=== PATIENT | male | born 1940 | race Caucasian/White ===

== ENCOUNTER 2021-06-05 05:51 | Emergency (ER) | payer MEDICARE, BC ==
[~2021-06-05] VITALS: Ht 175.3 cm; Wt 78.7 kg
--- NOTE | 2021-06-05 05:55 | NUR ---
Patient BIB [facility] from home for c/o left flank pain. Patient states 4 days ago he tripped on the 2nd step and fell on his back. He states that he was seen at [facility] ER and had x rays done which were negative. Came in for worsening pain.
--- NOTE | 2021-06-05 06:00 | NUR ---
Dr. Aldana on bedside for MSE.
[2021-06-05 06:14] LABS: HEMATOCRIT 39.5 % (36.7-47.1); MEAN CORPUSCULAR HEMOGLOBIN 29.8 uug (23.8-33.4); MEAN CORPUSCULAR VOLUME 87.2 fL (73.0-96.2); PLATELET COUNT (AUTO) 247 K/uL (152-348)
[2021-06-05] MEDS ORDERED: IV NORMAL SALINE 1000 ML BAG IV ONE (06:15)
[2021-06-05] MEDS ORDERED: ONDANSETRON 4 MG/2 ML VIAL IV ONE ×2 (06:15→07:30)
[2021-06-05 06:20] LABS: CREATININE 1.3 mg/dL (0.6-1.3); POTASSIUM 4.4 mmol/L (3.5-5.1)
[2021-06-05] MEDS ORDERED: PROP10TA68 PO (06:21)
[2021-06-05] MEDS ORDERED: SILD100T PO (06:21)
[2021-06-05] MEDS ORDERED: ATOR40TA PO (06:21)
[2021-06-05] MEDS ORDERED: PREG50CA PO (06:21)
[2021-06-05 06:26] LABS: BILIRUBIN,DIRECT 0.1 mg/dL (0.0-0.2); BILIRUBIN,TOTAL 0.5 mg/dL (0.2-1.0); TOTAL PROTEIN, SERUM 6.6 g/dL (6.4-8.2)
[2021-06-05] MEDS ORDERED: ONDANSETRON 4 MG/2 ML VIAL ONE ×2 (06:30→07:40)
[2021-06-05] MEDS ORDERED: IOHEXOL 300MG/ML 100 ML INFUS..BTL ONE (06:39)
[2021-06-05] MEDS ORDERED: SWABABLE VALVE TRANSFER SET EA MC ONE (06:39)
[2021-06-05] MEDS ORDERED: IV NORMAL SALINE 250 ML IV ONE (06:39)
--- NOTE | 2021-06-05 07:04 | NUR ---
Report given to day shift ROSAURA Houser.
--- NOTE | 2021-06-05 07:05 | NUR ---
Patient back from CT.
[2021-06-05] MEDS ORDERED: MORPHINE SULFATE 2 MG/1 ML DISP.SYRIN IV ONE (07:30)
[2021-06-05] MEDS ORDERED: MORPHINE SULFATE 2 MG/1 ML DISP.SYRIN ONE (07:40)
[2021-06-05 08:01] LABS: *BILIRUBIN,URIN NEGATIVE (NEGATIVE); *BLOOD, URINE NEGATIVE (NEGATIVE); *CLARITY,URINE CLEAR (CLEAR); *COLOR,URINE YELLOW (YELLOW); *KETONES,URINE NEGATIVE (NEGATIVE); *UROBILINOGEN,URINE 0.2 E.U./dl (NORMAL); LEUKOCYTE ESTERASE ,URINE NEGATIVE (NEGATIVE); NITRITE, URINE NEGATIVE (NEGATIVE); UGLUCOSE NEGATIVE (NEGATIVE)
--- NOTE | 2021-06-05 08:04 | NUR ---
urine collected from patient and sent to lab
[2021-06-05] MEDS ORDERED: HYDR-4275 PO (09:12)
--- NOTE | 2021-06-05 09:41 | NUR ---
Patient discharged to home in stable condition. Instructed to follow up with primary care physician. CD given of radiology reports, patient wheeled with wheelchair and taken home in private car driven by . Written and verbal after care instructions given. Patient verbalizes understanding of instructions. Stressed follow up or return to ER for worsening s/s.
[2021-06-05 09:45] VITALS: BP 120/71
== END 2021-06-05 09:46 | disposition home or self-care (01) ==
LOC: ER 05:59
DX: R10.9 Unspecified abdominal pain (principal); M54.9 Dorsalgia, unspecified; E78.5 Hyperlipidemia, unspecified; M19.90 Unspecified osteoarthritis, unspecified site; I10 Essential (primary) hypertension
CPT/HCPCS: 36415; 71260; 74177; 80048; 80076; 81003; 83690; 84484; 85025; 85730; 93005; 96374; 96375; 96376; 99285; J2270; J2405 ×2; Q9967; 70030-TC; A4663; J7030; J7050

== ENCOUNTER 2021-06-11 15:23 | Emergency (ER) | payer MEDICARE, BC ==
[~2021-06-11] VITALS: Ht 177.8 cm; Wt 76.7 kg
[~2021-06-11 15:23] MED LIST: ATOR40TA PO; HYDR-4275 PO; PREG50CA PO; PROP10TA68 PO; SILD100T PO
[2021-06-11] MEDS ORDERED: HYDROMORPHONE 1 MG/1 ML DISP.SYRIN IV ONE (15:45)
[2021-06-11] MEDS ORDERED: IV NORMAL SALINE 1000 ML BAG IV ONE (15:45)
[2021-06-11] MEDS ORDERED: IOHEXOL 300MG/ML 100 ML INFUS..BTL ONE (16:01)
[2021-06-11] MEDS ORDERED: SWABABLE VALVE TRANSFER SET EA MC ONE (16:01)
[2021-06-11] MEDS ORDERED: IV NORMAL SALINE 250 ML IV ONE (16:01)
[2021-06-11] MEDS ORDERED: ONDANSETRON 4 MG/2 ML VIAL IV ONE (16:15)
[2021-06-11] MEDS ORDERED: ONDANSETRON 4 MG/2 ML VIAL ONE (16:15)
[2021-06-11] MEDS ORDERED: MORPHINE SULFATE 4 MG/1 ML DISP.SYRIN IV ONE (16:15)
[2021-06-11] MEDS ORDERED: MORPHINE SULFATE 2 MG/1 ML DISP.SYRIN ONE (16:16)
[2021-06-11 16:19] LABS: HEMATOCRIT 41.9 % (36.7-47.1); MEAN CORPUSCULAR HEMOGLOBIN 29.3 uug (23.8-33.4); MEAN CORPUSCULAR VOLUME 86.6 fL (73.0-96.2); PLATELET COUNT (AUTO) 293 K/uL (152-348)
[2021-06-11 16:32] LABS: BILIRUBIN,DIRECT 0.1 mg/dL (0.0-0.2); BILIRUBIN,TOTAL 0.6 mg/dL (0.2-1.0); CREATININE 1.2 mg/dL (0.6-1.3); POTASSIUM 4.1 mmol/L (3.5-5.1); TOTAL PROTEIN, SERUM 7.2 g/dL (6.4-8.2)
--- NOTE | 2021-06-11 18:00 | NUR ---
Removed IV intact, site okay, bandaged. Gave pt d/c instructions, pt verbalized understanding.
== END 2021-06-11 18:40 | disposition home or self-care (01) ==
LOC: ER 15:23
DX: R10.33 Periumbilical pain (principal); K59.00 Constipation, unspecified; N40.0 Benign prostatic hyperplasia without lower urinary tract symptoms; Z90.49 Acquired absence of other specified parts of digestive tract; Z96.641 Presence of right artificial hip joint; E78.5 Hyperlipidemia, unspecified; Z85.820 Personal history of malignant melanoma of skin; Z88.2 Allergy status to sulfonamides; G25.0 Essential tremor; Z88.8 Allergy status to other drugs, medicaments and biological substances; Z91.048 Other nonmedicinal substance allergy status
CPT/HCPCS: 74177; 80048; 80076; 83605; 83690; 84484; 85025; 85730; 87040 ×2; 93005; 96361; 96374; 96375; 99285; J2270; J2405; Q9967; 36415; 70030-TC; A4663; J7030; J7050

== ENCOUNTER 2021-06-14 05:15 | Emergency (ER) | payer MEDICARE, BC ==
[~2021-06-14] VITALS: Ht 177.8 cm; Wt 77.1 kg
[~2021-06-14 05:15] MED LIST changes: -HYDR-4275 PO; -PREG50CA PO; -SILD100T PO
[2021-06-14] MEDS ORDERED: PROCHLORPERAZINE EDISYLATE 10 MG/2 ML VIAL IV ONE (06:00)
[2021-06-14] MEDS ORDERED: MORPHINE SULFATE 2 MG/1 ML DISP.SYRIN IV ONE ×2 (06:00→08:30)
[2021-06-14] MEDS ORDERED: IV NORMAL SALINE 1000 ML BAG IV ONE (06:00)
[2021-06-14] MEDS ORDERED: IV NORMAL SALINE 250 ML IV ONE (06:03)
[2021-06-14] MEDS ORDERED: SWABABLE VALVE TRANSFER SET EA MC ONE (06:03)
[2021-06-14] MEDS ORDERED: IOHEXOL 300MG/ML 100 ML INFUS..BTL ONE (06:03)
[2021-06-14 06:25] LABS: HEMATOCRIT 39.5 % (36.7-47.1); MEAN CORPUSCULAR HEMOGLOBIN 29.9 uug (23.8-33.4); MEAN CORPUSCULAR VOLUME 87.4 fL (73.0-96.2); PLATELET COUNT (AUTO) 264 K/uL (152-348)
[2021-06-14] MEDS ORDERED: PROCHLORPERAZINE EDISYLATE 10 MG/2 ML VIAL ONE (06:26)
[2021-06-14] MEDS ORDERED: MORPHINE SULFATE 2 MG/1 ML DISP.SYRIN ONE ×2 (06:26→08:37)
--- NOTE | 2021-06-14 06:36 | NUR ---
Brought to ED with spouse in WC. Complaint abdominal pain x several days, seen here 06/12 constipation.At home taking stool softner, has fluid brown stools with moderate pain x minutes with BM. #20 RFA IVF, medications as directed. Last intake 06/13 2000 small amount spagitti . Evarts intact membranes. EKG SR with 1 degree block to MD.To CT via jason.
[2021-06-14 06:50] LABS: CREATININE 1.2 mg/dL (0.6-1.3); POTASSIUM 3.8 mmol/L (3.5-5.1)
[2021-06-14 06:56] LABS: BILIRUBIN,DIRECT 0.1 mg/dL (0.0-0.2); BILIRUBIN,TOTAL 0.4 mg/dL (0.2-1.0)
--- NOTE | 2021-06-14 07:45 | NUR ---
Received report from kiln charger. Pt has been worked up since approx 0430. Pt gotten up and road tested to bathroom. Steady gait but does state feeling a little weak. Pt denies pain, nausea, sob, dizziness or discomfort. Pt has good color, temp and appearance, VSS, PE WNL, lungs clear, RRR without g/m/r/e. No s/sx of distress present
[2021-06-14] MEDS ORDERED: ONDANSETRON 4 MG/2 ML VIAL ONE (08:40)
[2021-06-14] MEDS ORDERED: ONDANSETRON 4 MG/2 ML VIAL IV ONE (08:45)
--- NOTE | 2021-06-14 08:45 | NUR ---
Pt complaining of 9/10 abd pain, pt bent over and writhing in pain. EDMD ordered 2mg /1ml MS plus zofran 4mg per pt request. Meds administered IVP without difficulty. pt states feeling relief, pain at 5/10 now. Pt states feeling mildly nausead that passed, otherwise pt tolerated well.
--- NOTE | 2021-06-14 08:55 | NUR ---
18 fr NG tube measured properly, lubed up copiously and inserted without difficulty into Lt nostrile. Inserted with one fluid motion, tube entered very easily with very little resistance to approx 60cm. at nares. Placement confirmed with steth. connected to low intermittent suction with immediate return of approx 40cc gastric juices and residual. Pt tolerated well, with little pain and discomfort.
--- NOTE | 2021-06-14 09:32 | NUR ---
PCXR being taken currently for NG placement confirmation. Pt swabbed for rapid covid test and sample sent to lab.
--- NOTE | 2021-06-14 09:40 | NUR ---
EDMD at pt bedside to discuss dispo with pt and pt's . Pt will not be admitted but will be DCed home with referrals to GI and some tips on management of symptoms.
--- NOTE | 2021-06-14 09:52 | NUR ---
PO trial started using 4oz H2O per EDMD.
[2021-06-14] MEDS ORDERED: METO-295 PO (09:56)
[2021-06-14] MEDS ORDERED: SENN-175 PO (09:57)
--- NOTE | 2021-06-14 10:10 | NUR ---
Pt and pt's given DC instructions by [facility] personally. EDMT discussed dispo and options with pt add length and given prescribtion medication info. Pt and confirmed understanding of [facility] DC instructions. Pt has no further questions at this time. Pt told that the his pharmacist can answer any additional questions they may have regarding prescribtions. Pt has good color, temp and appearance, VSS, PE wnl, lungs clear, NSR without ectopy. RRR without m/g/r. IV angio removed from Rt forearm and NG removed from rt. nostrile without difficulty. Pt oxygenating and perfusing well. No complaints of pain, nausea or discomfort. No s/sx of distress present.
[2021-06-14 10:31] VITALS: BP 133/93
--- NOTE | 2021-06-14 10:31 | NUR ---
Rapid covid test canceled
== END 2021-06-14 10:10 | disposition home or self-care (01) ==
LOC: ER 05:19
DX: R10.9 Unspecified abdominal pain (principal); Z90.49 Acquired absence of other specified parts of digestive tract; Z85.820 Personal history of malignant melanoma of skin; E78.5 Hyperlipidemia, unspecified; G25.0 Essential tremor; Z96.641 Presence of right artificial hip joint; M19.90 Unspecified osteoarthritis, unspecified site; Z88.5 Allergy status to narcotic agent; Z88.2 Allergy status to sulfonamides; K44.9 Diaphragmatic hernia without obstruction or gangrene; R11.0 Nausea; R94.31 Abnormal electrocardiogram [ECG] [EKG]
CPT/HCPCS: 36415; 71045; 74018; 74177; 80048; 80076; 83605; 83690; 84484; 85025; 93005; 96361; 96374; 96375; 96376; 99285; J0780; J2270 ×2; J2405; Q9967; 70030-TC; A4663; J7050

== ENCOUNTER 2022-03-25 18:33 | Emergency (ER) | payer MEDICARE, BC ==
[~2022-03-25] VITALS: Ht 177.8 cm; Wt 68.0 kg
[~2022-03-25 18:33] MED LIST changes: +METO-295 PO; +SENN-175 PO
--- NOTE | 2022-03-25 19:36 | NUR ---
Dr. Olmos on bedside for MSE.
[2022-03-25] MEDS ORDERED: IV NORMAL SALINE 1000 ML BAG IV ONE (20:00)
[2022-03-25 20:08] LABS: HEMATOCRIT 40.1 % (36.7-47.1); MEAN CORPUSCULAR HEMOGLOBIN 29.5 uug (23.8-33.4); MEAN CORPUSCULAR VOLUME 87.2 fL (73.0-96.2); PLATELET COUNT (AUTO) 260 K/uL (152-348)
[2022-03-25 20:10] LABS: NEUTROPHILS % (MANUAL) 0 % (42-75)
[2022-03-25 20:18] LABS: CARBON DIOXIDE 29 mmol/L (21-32); CHLORIDE 104 mmol/L (98-107); CREATININE 1.2 mg/dL (0.6-1.3); GLUCOSE 110 mg/dL (74-106); POTASSIUM 3.8 mmol/L (3.5-5.1); UREA NITROGEN, BLOOD 22 mg/dL (7-18)
[2022-03-25 20:26] LABS: ALANINE AMINOTRANSFERASE 27 U/L (16-63); ALKALINE PHOSPHATASE 76 U/L (50-136); ASPARTATE AMINOTRANSFERASE 18 U/L (15-37); BILIRUBIN,DIRECT 0.1 mg/dL (0.0-0.2); BILIRUBIN,TOTAL 0.6 mg/dL (0.2-1.0); TOTAL PROTEIN, SERUM 6.9 g/dL (6.4-8.2)
[2022-03-25] MEDS ORDERED: IOHEXOL 300MG/ML 50 ML VIAL ONE (20:35)
[2022-03-25] MEDS ORDERED: IV NORMAL SALINE 250 ML IV ONE (20:36)
[2022-03-25] MEDS ORDERED: SILD100T PO (20:37)
[2022-03-25] MEDS ORDERED: VICODIN PO (20:37)
[2022-03-25] MEDS ORDERED: [UNRECOGNIZED DRUG - OTHER] PO (20:37)
[2022-03-25] MEDS ORDERED: PREG50CA PO (20:37)
[2022-03-25] MEDS ORDERED: CHOL500062 PO (20:37)
[2022-03-25] MEDS ORDERED: MELA5TAB PO (20:37)
[2022-03-25] MEDS ORDERED: SWABABLE VALVE TRANSFER SET EA MC ONE (20:40)
--- NOTE | 2022-03-25 21:14 | NUR ---
Back from CT.
[2022-03-25] MEDS ORDERED: LIDOCAINE 2% (GLYDO= UROJET) 10 ML JELLY MM ONE ×2 (22:14→22:30)
[2022-03-25 23:13] LABS: *BILIRUBIN,URIN NEGATIVE (NEGATIVE); *BLOOD, URINE TRACE (NEGATIVE); *CLARITY,URINE CLEAR (CLEAR); *COLOR,URINE YELLOW (YELLOW); PH,URINE 5.5 (5.0-8.0); UGLUCOSE NEGATIVE (NEGATIVE)
[2022-03-25 23:14] LABS: *KETONES,URINE NEGATIVE (NEGATIVE); *UROBILINOGEN,URINE 0.2 E.U./dl (NORMAL); LEUKOCYTE ESTERASE ,URINE NEGATIVE (NEGATIVE); NITRITE, URINE NEGATIVE (NEGATIVE)
[2022-03-25 23:19] LABS: BACTERIA,URINE NONE SEEN /HPF (NONE SEEN); SQUAMOUS EPITHELIAL CELL,UR FEW /HPF (NONE SEEN); WBC,URINE 0-3 /HPF (0-3)
--- NOTE | 2022-03-25 23:30 | NUR ---
Dr. Olmos on bedside.
[2022-03-25] MEDS ORDERED: OXYC-128 PO (23:44)
--- NOTE | 2022-03-26 00:14 | NUR ---
Patient discharged to home in stable condition. Written and verbal after care instructions given. Patient verbalizes understanding of instructions. Stressed follow up or return to ER for worsening s/s. Patient ambulated fr the ER with steady gait. All belongings with patient.
[2022-03-26 00:20] VITALS: BP 128/89
== END 2022-03-26 00:15 | disposition home or self-care (01) ==
LOC: ER 18:33
DX: R10.33 Periumbilical pain (principal); R33.9 Retention of urine, unspecified; K52.9 Noninfective gastroenteritis and colitis, unspecified; R94.31 Abnormal electrocardiogram [ECG] [EKG]; Z96.641 Presence of right artificial hip joint; Z90.49 Acquired absence of other specified parts of digestive tract; Z85.820 Personal history of malignant melanoma of skin
CPT/HCPCS: 99285; 74177; 96360; 96361; 80076; 80048; 81001; 85025; 84484; 36415; 93005; 51702; 83605; 85007; Q9967; J7040; 70030-TC; A4663

== ENCOUNTER 2022-06-18 06:39 | Emergency (ER) | payer MEDICARE, BC ==
[~2022-06-18] VITALS: Ht 177.8 cm; Wt 68.0 kg
[~2022-06-18 06:39] MED LIST changes: +CHOL500062 PO; +MELA5TAB PO; -METO-295 PO; +OXYC-128 PO; +PREG50CA PO; -PROP10TA68 PO; -SENN-175 PO; +SILD100T PO; +VICODIN PO; +[UNRECOGNIZED DRUG - OTHER] PO
--- NOTE | 2022-06-18 07:04 | NUR ---
Pt. walked into ER. with steady gait, NAD noted
[2022-06-18] MEDS ORDERED: AZIT250T13 PO (07:23)
--- NOTE | 2022-06-18 07:35 | NUR ---
Patient discharged to home in stable condition. Written and verbal after care instructions given. Patient verbalizes understanding of instructions. Stressed follow up or return to ER for worsening s/s.
[2022-06-18 07:37] VITALS: BP 146/89
== END 2022-06-18 07:35 | disposition home or self-care (01) ==
LOC: ER 06:45
DX: R05.9 Cough, unspecified (principal); Z96.641 Presence of right artificial hip joint; Z90.49 Acquired absence of other specified parts of digestive tract; G25.0 Essential tremor; E78.5 Hyperlipidemia, unspecified; M19.90 Unspecified osteoarthritis, unspecified site
CPT/HCPCS: 71045; A4663

== ENCOUNTER 2022-07-11 00:40 | Emergency (ER) | payer MEDICARE, BC ==
[~2022-07-11] VITALS: Ht 177.8 cm; Wt 68.0 kg
[~2022-07-11 00:40] MED LIST changes: +AZIT250T13 PO
--- NOTE | 2022-07-11 01:45 | NUR ---
Dr. Love at bedside for MSE.
[2022-07-11] MEDS ORDERED: KETOROLAC TROMETHAMINE 15 MG INJ IVP ONE (02:00)
[2022-07-11] MEDS ORDERED: IV NORMAL SALINE 1000 ML BAG IV ONE (02:00)
[2022-07-11] MEDS ORDERED: ONDANSETRON 4 MG/2 ML VIAL IV ONE (02:00)
--- NOTE | 2022-07-11 02:05 | NUR ---
Pt out of ER for CT.
[2022-07-11] MEDS ORDERED: KETOROLAC TROMETHAMINE 15 MG INJ ONE (02:13)
[2022-07-11] MEDS ORDERED: ONDANSETRON 4 MG/2 ML VIAL ONE (02:13)
--- NOTE | 2022-07-11 02:20 | NUR ---
Pt back to ER from CT.
[2022-07-11 02:21] LABS: *BILIRUBIN,URIN NEGATIVE (NEGATIVE); *BLOOD, URINE NEGATIVE (NEGATIVE); *CLARITY,URINE CLEAR (CLEAR); *COLOR,URINE YELLOW (YELLOW); *KETONES,URINE NEGATIVE (NEGATIVE); *UROBILINOGEN,URINE 0.2 E.U./dl (NORMAL); LEUKOCYTE ESTERASE ,URINE NEGATIVE (NEGATIVE); NITRITE, URINE NEGATIVE (NEGATIVE); PH,URINE 5.5 (5.0-8.0); UGLUCOSE NEGATIVE (NEGATIVE)
[2022-07-11 02:31] LABS: HEMATOCRIT 41.2 % (36.7-47.1); MEAN CORPUSCULAR HEMOGLOBIN 30.2 uug (23.8-33.4); MEAN CORPUSCULAR VOLUME 87.3 fL (73.0-96.2); PLATELET COUNT (AUTO) 207 K/uL (152-348)
[2022-07-11 03:21] LABS: CARBON DIOXIDE 28 mmol/L (21-32); CHLORIDE 103 mmol/L (98-107); CREATININE 1.4 mg/dL (0.6-1.3); GLUCOSE 129 mg/dL (74-106); LIPASE 58 U/L (73-393); POTASSIUM 4.4 mmol/L (3.5-5.1); UREA NITROGEN, BLOOD 30 mg/dL (7-18)
[2022-07-11 03:26] LABS: ALANINE AMINOTRANSFERASE 39 U/L (16-63); ALKALINE PHOSPHATASE 77 U/L (50-136); ASPARTATE AMINOTRANSFERASE 22 U/L (15-37); BILIRUBIN,TOTAL 0.5 mg/dL (0.2-1.0)
[2022-07-11 03:41] LABS: TOTAL PROTEIN, SERUM 7.1 g/dL (6.4-8.2)
[2022-07-11] MEDS ORDERED: METRONIDAZOLE 500 MG/NS 100 ML PIGGYBACK IV ONE (03:45)
[2022-07-11] MEDS ORDERED: IV NORMAL SALINE 500 ML BAG IV ONE (03:45)
[2022-07-11] MEDS ORDERED: CEFTRIAXONE 1 G in IV DEXTROSE 5% 50 ML IV ONE (03:45)
[2022-07-11] MEDS ORDERED: IV NORMAL SALINE 250 ML IV ONE (03:49)
[2022-07-11] MEDS ORDERED: CEFTRIAXONE /D5W 50ML IVPB **ER PYXIS IV ONE (03:49)
[2022-07-11] MEDS ORDERED: SWABABLE VALVE TRANSFER SET EA MC ONE (03:49)
[2022-07-11] MEDS ORDERED: IOHEXOL 350 100 ML INFUS..BTL ONE (03:50)
[2022-07-11] MEDS ORDERED: INDO-12 PO (03:51)
--- NOTE | 2022-07-11 03:53 | NUR ---
Pt out of ER for CT.
[2022-07-11] MEDS ORDERED: ACETAMINOPHEN 325 MG TABLET ONE (04:48)
[2022-07-11] MEDS ORDERED: ACETAMINOPHEN 325 MG TABLET PO ONE (05:00)
[2022-07-11] MEDS ORDERED: CIPR500T5 PO (05:13)
[2022-07-11] MEDS ORDERED: METR-147 PO (05:14)
[2022-07-11] MEDS ORDERED: METRONIDAZOLE 500 MG/NS 100ML 100 ML IV ONE (05:20)
[2022-07-11] MEDS ORDERED: HYDROCORTISONE 1% CREAM 30 GM TUBE TP ONE ×2 (05:56→06:00)
--- NOTE | 2022-07-11 06:38 | NUR ---
Patient discharged to home in stable condition. Written and verbal after care instructions given. Patient verbalizes understanding of instructions. Stressed follow up or return to ER for worsening s/s. Patient out of ER with steady gait, no acute signs of distress, VSS, all belongings taken, IV site discontinued, provided with copies of lab and CT results.
[2022-07-11 06:40] VITALS: BP 107/67
== END 2022-07-11 06:40 | disposition home or self-care (01) ==
LOC: ER 00:40
DX: K52.9 Noninfective gastroenteritis and colitis, unspecified (principal); N17.9 Acute kidney failure, unspecified; R91.8 Other nonspecific abnormal finding of lung field; R55 Syncope and collapse; Z20.822 Contact with and (suspected) exposure to COVID-19; E78.5 Hyperlipidemia, unspecified; Z87.01 Personal history of pneumonia (recurrent); N32.3 Diverticulum of bladder; Z96.641 Presence of right artificial hip joint; Z90.49 Acquired absence of other specified parts of digestive tract; G44.029 Chronic cluster headache, not intractable; Z79.899 Other long term (current) drug therapy; Z88.2 Allergy status to sulfonamides; Z85.820 Personal history of malignant melanoma of skin
CPT/HCPCS: 99285; 74174; 71250; 96365; 96361; 71045; 96367; 96366; 87426; 80053; 81003; 83690; 85025; 87400; 84484; 36415; 93005; 83605; 87040; 74176; J0696; J3490; Q9967; J7040 ×3; A4663; J1885; J2405

== ENCOUNTER 2022-11-21 15:21 | Emergency (ER) | payer MEDICARE, BC ==
[~2022-11-21] VITALS: Ht 177.8 cm; Wt 70.3 kg
[~2022-11-21 15:21] MED LIST changes: +CIPR500T5 PO; +INDO-12 PO; +METR-147 PO
[2022-11-21] MEDS ORDERED: MORPHINE SULFATE 4 MG/1 ML DISP.SYRIN ONE (15:45)
[2022-11-21] MEDS ORDERED: ONDANSETRON 4 MG/2 ML VIAL ONE (15:45)
[2022-11-21] MEDS ORDERED: IV NORMAL SALINE 1000 ML BAG IV ONE (15:45)
[2022-11-21] MEDS ORDERED: ONDANSETRON 4 MG/2 ML VIAL IV ONE (15:45)
[2022-11-21] MEDS ORDERED: MORPHINE SULFATE 2 MG/1 ML DISP.SYRIN IV ONE (15:45)
[2022-11-21 15:55] LABS: HEMATOCRIT 42.9 % (36.7-47.1); MEAN CORPUSCULAR HEMOGLOBIN 29.5 uug (23.8-33.4); MEAN CORPUSCULAR VOLUME 88.1 fL (73.0-96.2); PLATELET COUNT (AUTO) 233 K/uL (152-348)
[2022-11-21 16:17] LABS: ALANINE AMINOTRANSFERASE 34 U/L (16-63); ALKALINE PHOSPHATASE 72 U/L (50-136); ASPARTATE AMINOTRANSFERASE 18 U/L (15-37); BILIRUBIN,DIRECT 0.2 mg/dL (0.0-0.2); BILIRUBIN,TOTAL 0.8 mg/dL (0.2-1.0); CARBON DIOXIDE 28 mmol/L (21-32); CHLORIDE 103 mmol/L (98-107); CREATININE 1.3 mg/dL (0.6-1.3); GLUCOSE 108 mg/dL (74-106); LIPASE 46 U/L (73-393); POTASSIUM 4.1 mmol/L (3.5-5.1); TOTAL PROTEIN, SERUM 7.4 g/dL (6.4-8.2); UREA NITROGEN, BLOOD 23 mg/dL (7-18)
[2022-11-21 16:58] LABS: *BILIRUBIN,URIN NEGATIVE (NEGATIVE); *BLOOD, URINE NEGATIVE (NEGATIVE); *CLARITY,URINE CLEAR (CLEAR); *COLOR,URINE YELLOW (YELLOW); *KETONES,URINE NEGATIVE (NEGATIVE); *UROBILINOGEN,URINE 0.2 E.U./dl (NORMAL); LEUKOCYTE ESTERASE ,URINE NEGATIVE (NEGATIVE); NITRITE, URINE NEGATIVE (NEGATIVE); PH,URINE 5.5 (5.0-8.0); UGLUCOSE NEGATIVE (NEGATIVE)
== END 2022-11-21 18:00 | disposition home or self-care (01) ==
LOC: ER 15:30
DX: R10.84 Generalized abdominal pain (principal); R07.89 Other chest pain; Z90.49 Acquired absence of other specified parts of digestive tract; Z88.2 Allergy status to sulfonamides; Z88.8 Allergy status to other drugs, medicaments and biological substances; Z91.048 Other nonmedicinal substance allergy status; Z79.2 Long term (current) use of antibiotics; Z79.899 Other long term (current) drug therapy
CPT/HCPCS: 99285; 74176; 96374; 71045; 96375; 80076; 80048; 81003; 83690; 85025; 85730; 84484; 36415; 93005; 83605; J2405; J2270; J7040; A4663

== ENCOUNTER 2023-01-02 19:54 | Inpatient (IN) | payer MEDICARE, BC ==
[~2023-01-02] VITALS: Ht 170.2 cm; Wt 70.8 kg
[~2023-01-02 19:54] MED LIST changes: -AZIT250T13 PO; -INDO-12 PO; -OXYC-128 PO; -SILD100T PO; -VICODIN PO; -[UNRECOGNIZED DRUG - OTHER] PO
[2023-01-02] MEDS ORDERED: MORPHINE SULFATE 2 MG/1 ML DISP.SYRIN IV ONE (20:30)
[2023-01-02] MEDS ORDERED: ONDANSETRON 4 MG/2 ML VIAL IV ONE (20:30)
[2023-01-02] MEDS ORDERED: PROP40TA7 PO (20:41)
[2023-01-02] MEDS ORDERED: vicodin PO (20:41)
[2023-01-02] MEDS ORDERED: ONDA4TAB11 PO (20:41)
[2023-01-02] MEDS ORDERED: ONDANSETRON 4 MG/2 ML VIAL ONE (20:44)
[2023-01-02] MEDS ORDERED: MORPHINE SULFATE 2 MG/1 ML DISP.SYRIN ONE (20:45)
[2023-01-02 20:49] LABS: HEMATOCRIT 45.5 % (36.7-47.1); MEAN CORPUSCULAR HEMOGLOBIN 29.6 uug (23.8-33.4); MEAN CORPUSCULAR VOLUME 87.2 fL (73.0-96.2); PLATELET COUNT (AUTO) 243 K/uL (152-348)
[2023-01-02 20:59] LABS: CARBON DIOXIDE 28 mmol/L (21-32); CHLORIDE 104 mmol/L (98-107); CREATININE 1.2 mg/dL (0.6-1.3); GLUCOSE 122 mg/dL (74-106); POTASSIUM 3.8 mmol/L (3.5-5.1); UREA NITROGEN, BLOOD 23 mg/dL (7-18)
[2023-01-02 21:05] LABS: ALANINE AMINOTRANSFERASE 29 U/L (16-63); ALKALINE PHOSPHATASE 75 U/L (50-136); ASPARTATE AMINOTRANSFERASE 19 U/L (15-37); TOTAL PROTEIN, SERUM 7.8 g/dL (6.4-8.2)
--- NOTE | 2023-01-02 21:28 | NUR ---
Patient's June Fields signed consent for CT of abd/pelvis w/ contrast.
[2023-01-02] MEDS ORDERED: METOCLOPRAMIDE HCL 10 MG/2 ML VIAL ONE (21:35)
[2023-01-02] MEDS ORDERED: METOCLOPRAMIDE HCL 10 MG/2 ML VIAL IV ONE (21:45)
[2023-01-02] MEDS ORDERED: IV NORMAL SALINE 500 ML BAG IV ONE (21:45)
--- NOTE | 2023-01-02 22:15 | NUR ---
Patient taken to CT via jason accompanied by clara
[2023-01-02] MEDS ORDERED: IV NORMAL SALINE 250 ML IV ONE (22:25)
[2023-01-02] MEDS ORDERED: IOHEXOL 300MG/ML 100 ML INFUS..BTL ONE (22:25)
[2023-01-02] MEDS ORDERED: SWABABLE VALVE TRANSFER SET EA MC ONE (22:25)
--- NOTE | 2023-01-02 22:42 | NUR ---
Called third floor spoke with Charge Karrie KAPLAN to request [facility] bed. Waiting for call back for bed assignment.
[2023-01-02] MEDS ORDERED: REMEDY ESSENTIAL ZINC PASTE 113 GM TP PRN (23:30)
[2023-01-02] MEDS ORDERED: MORPHINE SULFATE 2 MG/1 ML DISP.SYRIN IV PRN (23:30)
[2023-01-02] MEDS ORDERED: LIDOCAINE 2% (GLYDO= UROJET) 10 ML JELLY MM ONE (23:51)
[2023-01-03] MEDS ORDERED: ONDANSETRON 4 MG/2 ML VIAL IV ONE
[2023-01-03] MEDS ORDERED: MORPHINE SULFATE 2 MG/1 ML DISP.SYRIN IV ONE
[2023-01-03] MEDS ORDERED: LIDOCAINE 2% (GLYDO= UROJET) 10 ML JELLY MM ONE
[2023-01-03] MEDS ORDERED: METOCLOPRAMIDE HCL 10 MG/2 ML VIAL ONE (00:28)
[2023-01-03] MEDS ORDERED: METOCLOPRAMIDE HCL 10 MG/2 ML VIAL IV ONE (00:30)
--- NOTE | 2023-01-03 00:51 | NUR ---
Placed NG tube to right nosetril, waiting for Xray verification of right placement. Addendum: 01/03/23 at 0055 by SCOOTER Placed a 14F [facility] ng tube at [address].
--- NOTE | 2023-01-03 01:00 | NUR ---
Patient has been admitted to third floor [facility] floor 320
--- NOTE | 2023-01-03 01:05 | NUR ---
NG placement verified by Dr. Townsend. Per Dr. Townsend, patient to be placed in continous suction for decompression.
--- NOTE | 2023-01-03 01:50 | NUR ---
Report given to Ysabel KAPLAN.
--- NOTE | 2023-01-03 01:50 | NUR ---
Yane nagy in [facility] - 01/03/23 at 0150 by SCOOTER Report given to carmilita
[2023-01-03 02:34] VITALS: BP 117/74
--- NOTE | 2023-01-03 02:34 | NUR ---
admitted from er via [facility] awake alert oriented. no discomfort voiced.ngt intact connected to low intermittent suction noted with light brownish color in the ngt tube. d5.45ns 75 ml/hr started to lac g 20 angiocath iv infusing well.site ok.advised to pt.to keep npo. pt. just want to sleep. monitor pt. closely
--- NOTE | 2023-01-03 02:35 | NUR ---
Emptied vacuum canister 750ml output of brown color fluid.
--- NOTE | 2023-01-03 02:37 | NUR ---
Patient denies lower abd pain and N/V. Patient stated abd relief after decompression.
--- NOTE | 2023-01-03 02:40 | NUR ---
Patient taken to third floor room 320 via gurney with personal belongings. Patient in stable condition, no signs of distress noted. Fara KAPLAN aware of patient's arrival
[2023-01-03] MEDS: IV D5 1/2 NS 1000 ML 1,000 ML IV PRN ×2 (02:45→23:09)
--- NOTE | 2023-01-03 06:34 | NUR ---
sle4pt well. ngt - no output. no complaint voiced.
[2023-01-03 06:38] LABS: HEMATOCRIT 40.1 % (36.7-47.1); MEAN CORPUSCULAR HEMOGLOBIN 29.7 uug (23.8-33.4); PLATELET COUNT (AUTO) 219 K/uL (152-348)
[2023-01-03 07:02] LABS: CREATININE 1.1 mg/dL (0.6-1.3); MAGNESIUM 1.8 mg/dL (1.8-2.4); PHOSPHOROUS 3.8 mg/dL (2.5-4.9); POTASSIUM 3.7 mmol/L (3.5-5.1)
[2023-01-03 07:32] LABS: THYROID STIMULATING HORMONE 2.225 mIU/mL (0.358-3.740)
[2023-01-03] MEDS: PANTOPRAZOLE SODIUM 40 MG VIAL IV SCH (09:10)
[2023-01-03] MEDS: ONDANSETRON 4 MG/2 ML VIAL IV PRN ×3 (09:10→23:30)
[2023-01-03 11:37] VITALS: BP_SYST 100; BP_SYST 119; BP_DIAS 60; BP_DIAS 81
[2023-01-03] MEDS ORDERED: DIATR MEGLU/DIATRIZOATE SODIUM 30 ML BOTTLE ONE (14:27)
[2023-01-03] MEDS ORDERED: HYDROCODONE/APAP 5-325MG TABLET PO PRN (16:00)
[2023-01-03 16:36] VITALS: BP 118/84
[2023-01-03] MEDS: ERYTHROMYCIN 0.5% OPHT OINT 3.5 GM TUBE EACHEYE SCH ×2 (17:00→20:27)
[2023-01-03] MEDS ORDERED: PROP20TA7 PO (19:46)
[2023-01-03] MEDS ORDERED: PREG25CA19 PO (19:46)
[2023-01-03 20:00] VITALS: BP 133/77
--- NOTE | 2023-01-03 20:20 | NUR ---
Upon doing pt assessment, noted there was no output from NGT. After troubleshooting with the canister lid, moderate output visualized. NGT to LIS. Erythromycin ointment ordered for 1700 administration, however med was still unavailable by shift change. Called pharmacy around 1900 to f/u and they said they will send it up. Endorsed to security shift supervisor RN to give med. PIV changed d/t IV occlusion. Patient now has a 22g left forearm IV with fluids running. 1800 output: NGT: 150cc, Urine: 200cc
[2023-01-03] MEDS ORDERED: MORPHINE SULFATE 2 MG/1 ML DISP.SYRIN IV PRN (23:45)
--- NOTE | 2023-01-04 04:51 | NUR ---
Per pt, he's feeling weak from having constant loose bowel movement since last night. Assisted pt from transferring to bed to commode. Fall precaution maintained. At 0010, Pt complained of abdominal pain. Pt refused Morphine 4 mg. Per pt, too strong for him. Received order to give Morphine 2 mg. Morphine given as ordered. Pt verbalized relief. All needs attended. Safety precautions maintained.
--- NOTE | 2023-01-04 07:08 | NUR ---
Received order from Dr. Giron to change pt's diet to Clear liquid for breakfast.
[2023-01-04] MEDS: ONDANSETRON 4 MG/2 ML VIAL IV PRN ×2 (07:19→15:11)
--- NOTE | 2023-01-04 07:46 | NUR ---
Received order from Dr. Giron to discontinue NG tube. Will endorse to incoming nurse.
[2023-01-04 08:00] VITALS: BP 135/77
[2023-01-04] MEDS: PANTOPRAZOLE SODIUM 40 MG VIAL IV SCH (09:00)
[2023-01-04] MEDS: ERYTHROMYCIN 0.5% OPHT OINT 3.5 GM TUBE EACHEYE SCH ×4 (09:00→20:44)
[2023-01-04] MEDS: PIPERACILLIN SODIUM/TAZOBACTAM 3.375 G in IV DEXTROSE 5% 100 ML IV SCH ×2 (12:00→20:44)
[2023-01-04 12:16] VITALS: BP 104/61
[2023-01-04] MEDS ORDERED: PIPERACILLIN SODIUM/TAZOBACTAM 3.375 G in IV DEXTROSE 5% 50 ML IV SCH (14:00)
[2023-01-04 15:43] VITALS: BP 102/72
--- NOTE | 2023-01-04 18:47 | NUR ---
pt testing well no c/o abd pain
[2023-01-04 20:00] VITALS: BP 118/66
--- NOTE | 2023-01-04 23:00 | NUR ---
Bladder scan done, 455 ml. Pt has distended lower abdomen. Ovalle cath inserted aseptically as ordered. Draining well. Pt expressed relief. Will continue to monitor.
[2023-01-04] MEDS: IV D5 1/2 NS 1000 ML 1,000 ML IV PRN (23:28)
[2023-01-05] MEDS ORDERED: ACETAMINOPHEN 325 MG TABLET PO PRN ×2 (00:15→01:00)
[2023-01-05] MEDS: PIPERACILLIN SODIUM/TAZOBACTAM 3.375 G in IV DEXTROSE 5% 100 ML IV SCH ×2 (03:11→11:36)
[2023-01-05 07:30] LABS: HEMATOCRIT 37.3 % (36.7-47.1); MEAN CORPUSCULAR HEMOGLOBIN 29.8 uug (23.8-33.4); MEAN CORPUSCULAR VOLUME 87.2 fL (73.0-96.2); PLATELET COUNT (AUTO) 200 K/uL (152-348)
[2023-01-05] MEDS: PANTOPRAZOLE SODIUM 40 MG VIAL IV SCH (08:20)
[2023-01-05] MEDS: ERYTHROMYCIN 0.5% OPHT OINT 3.5 GM TUBE EACHEYE SCH ×4 (08:21→20:15)
[2023-01-05 10:10] LABS: ALANINE AMINOTRANSFERASE 27 U/L (16-63); ALKALINE PHOSPHATASE 58 U/L (50-136); ASPARTATE AMINOTRANSFERASE 16 U/L (15-37); BILIRUBIN,TOTAL 0.8 mg/dL (0.2-1.0); CARBON DIOXIDE 27 mmol/L (21-32); CHLORIDE 107 mmol/L (98-107); CREATININE 1.2 mg/dL (0.6-1.3); GLUCOSE 100 mg/dL (74-106); LIPASE 35 U/L (73-393); MAGNESIUM 1.9 mg/dL (1.8-2.4); PHOSPHOROUS 3.3 mg/dL (2.5-4.9); POTASSIUM 3.1 mmol/L (3.5-5.1); TOTAL PROTEIN, SERUM 6.1 g/dL (6.4-8.2); UREA NITROGEN, BLOOD 12 mg/dL (7-18)
[2023-01-05 10:43] LABS: CHOLESTEROL 166 mg/dL (<200); HDL CHOLESTEROL 62 mg/dL (40-60); TRIGLYCERIDES 95 MG/DL (30-150)
[2023-01-05] MEDS ORDERED: POTASSIUM CHLORIDE 20 MEQ TAB.PRT.SR PO ONE (11:45)
[2023-01-05 12:00] VITALS: BP 117/73
[2023-01-05 16:00] VITALS: BP 111/73
--- NOTE | 2023-01-05 17:40 | NUR ---
Pt. has been stable during the shift. Alert and oriented x4. No change in condition noted. No c/o pain. Call light within reach. Pt. c/o having diarrhea, reported to Dr. Mon and received order to D/C the ATB. A ll need attended and met. Will keep monitoring the patient.
[2023-01-05 20:00] VITALS: BP 121/73
[2023-01-05] MEDS: ACIDOPHILUS/BULGARICUS CHEW TAB PO SCH (20:13)
[2023-01-05] MEDS ORDERED: Melatonin 10 MG) PO SCH (21:00)
[2023-01-05] MEDS ORDERED: TAMSULOSIN HCL 0.4 MG CAP.SR.24H PO SCH ×2 (21:00)
[2023-01-05] MEDS: ONDANSETRON 4 MG/2 ML VIAL IV PRN (23:18)
[2023-01-06 04:00] VITALS: BP 101/61
[2023-01-06] MEDS: IV D5 1/2 NS 1000 ML 1,000 ML IV PRN (06:11)
[2023-01-06] MEDS ORDERED: PANTOPRAZOLE SODIUM 40 MG TABLET.DR PO SCH (07:00)
--- NOTE | 2023-01-06 07:40 | NUR ---
pt received in bed awake pt is axox4 ,call light with in reach no c/o pain noted
[2023-01-06] MEDS: ACIDOPHILUS/BULGARICUS CHEW TAB PO SCH (08:26)
[2023-01-06] MEDS: ERYTHROMYCIN 0.5% OPHT OINT 3.5 GM TUBE EACHEYE SCH ×2 (08:28→12:37)
[2023-01-06] MEDS: ONDANSETRON 4 MG/2 ML VIAL IV PRN (11:14)
--- NOTE | 2023-01-06 11:29 | NUR ---
dc folly catheter per md orders
[2023-01-06 11:31] VITALS: BP 110/61
[2023-01-06] MEDS ORDERED: TAMS-3 PO (12:25)
[2023-01-06] MEDS ORDERED: AMYL1CAP54 PO (12:25)
[2023-01-06] MEDS ORDERED: ONDA4TAB11 PO (12:25)
[2023-01-06] MEDS: LIPASE/PROTEASE/AMYLASE 4200 UNITS CAPSULE.DR PO SCH ×2 (12:37→16:37)
--- NOTE | 2023-01-06 15:30 | NUR ---
pt urinate 50 cc bladder scan did it show 256 cc md notified
--- NOTE | 2023-01-06 16:30 | NUR ---
pt urinate 50 cc more bladder scan done it show 300 cc talk to the pt regarding catcher pt refused talk to md ,and md talk to the pt pt said ok going home with the folly catheter ,
--- NOTE | 2023-01-06 17:00 | NUR ---
went to pt room with the folly catheter pt said he urinate 100 cc more he do not want the folly catheter charge nurse and md notified
--- NOTE | 2023-01-06 17:05 | NUR ---
dc orders received noted and carried out,dc heplock per md orders,dc instruction given to the pt pt was retaining urine after urinate per bladder scan , talk to the pt going home with catheter ,pt refused to put the urinary catheter ,pt was at bedside they said there home health nurse coming home tomorrow ,pt left the facility via private car in stable condition
== END 2023-01-06 17:10 | disposition home or self-care (01) | DRG 389 ==
LOC: ER 19:58 → MEDSURG3 23:30
PROVIDERS: ADMIT Nurse Practitioner Acute Care; ATTEND Student in an Organized Health Care Education/Training Program
PROC: 0D9670Z Drainage of Stomach with Drainage Device, Via Natural or Artificial Opening (ICD-10-PCS; principal; 2023-01-03)
PROC: 0T9B70Z Drainage of Bladder with Drainage Device, Via Natural or Artificial Opening (ICD-10-PCS; 2023-01-04)
DX: K56.50 Intestinal adhesions [bands], unspecified as to partial versus complete obstruction (principal); A04.9 Bacterial intestinal infection, unspecified; Z90.49 Acquired absence of other specified parts of digestive tract; N32.3 Diverticulum of bladder; E78.5 Hyperlipidemia, unspecified; G25.0 Essential tremor; Z85.820 Personal history of malignant melanoma of skin; Z88.2 Allergy status to sulfonamides; Z88.8 Allergy status to other drugs, medicaments and biological substances; Z91.048 Other nonmedicinal substance allergy status; Z98.890 Other specified postprocedural states; M19.90 Unspecified osteoarthritis, unspecified site; N40.1 Benign prostatic hyperplasia with lower urinary tract symptoms; R33.8 Other retention of urine; Z96.641 Presence of right artificial hip joint
CPT/HCPCS: 36415; 71045; 74250; 83605; 83690; 83735; 84100; 84443; 84484; 85025; 85610; 86850; 86900; 86901; 93005; C9113; G0378; J2270; J2405; J2543; J2765; J7040; Q9963; Q9967